=== PATIENT | male | born 1990 | race Caucasian/White ===

== ENCOUNTER 2016-12-21 15:31 | Emergency (ER) | payer SELFPAY ==
[2016-12-21 16:00] VITALS: BMI 28.1
[2016-12-21] MEDS ORDERED: Sodium Chloride 0.9% 1,000 ML IV STA (16:38)
[2016-12-21] MEDS ORDERED: Sodium Chloride 0.9% 1,000 ML ONE ×2 (16:45→19:51)
[2016-12-21 16:50] LABS: BASO # 0.1 K/uL (0.0-0.2); BASO % 0.6 % (0.0-2.0); EOS % 0.1 % (0.0-4.0); HEMATOCRIT 44.6 % (35.0-51.0); LYMPH # 1.2 K/uL (1.0-4.3); LYMPH % 10.5 % (20.0-40.0); MEAN CELL VOLUME 86.5 fL (80.0-94.0); MEAN CORPUSCULAR HEMOGLOBIN 28.4 pg (27.0-31.0); MEAN CORPUSCULAR HGB CONC 32.9 g/dL (33.0-37.0); MEAN PLATELET VOLUME 9.3 fL (7.2-11.7); MONO # 0.4 K/uL (0.0-0.8); RED CELL DISTRIBUTION WIDTH 13.4 % (11.5-14.5); WHITE BLOOD COUNT 11.9 K/uL (4.8-10.8)
[2016-12-21 17:07] LABS: CHLORIDE 97 mmol/L (98-107)
[2016-12-21 17:08] LABS: POTASSIUM 3.9 mmol/L (3.6-5.2); SODIUM 140 mmol/L (132-148)
[2016-12-21 17:10] LABS: ALB/GLOB RATIO 1.5 (1.0-2.1); AST/SGOT 19 U/L (17-59); BILIRUBIN,TOTAL 0.6 mg/dL (0.2-1.3); CARBON DIOXIDE 30 mmol/L (22-30); GFR AFRICAN-AMERICAN > 60; TOTAL PROTEIN 7.7 g/dL (6.3-8.3)
[2016-12-21 17:11] LABS: ALKALINE PHOSPHATASE 71 U/L (38-126); ALT/SGPT 21 U/L (21-72); BLOOD UREA NITROGEN 10 mg/dL (9-20); CALCIUM 9.1 mg/dl (8.6-10.4); GLUCOSE,RANDOM 133 mg/dL (75-110)
--- NOTE | 2016-12-21 17:43 | RAD ---
HISTORY: h/o gastric ulcer, svere abd pain COMPARISON: CT abdomen and pelvis with contrast performed 04/01/16 FINDINGS: BOWEL: Nonobstructive bowel gas pattern. Mild to moderate constipation. No definite free air. BONES: No acute osseous abnormality is detected. OTHER FINDINGS: None. IMPRESSION: Mild to moderate constipation.
--- NOTE | 2016-12-21 18:13 | C.PDOC ---
History Of Present Illness <Mara Chu - Last Filed: 12/21/16 19:05> <Neil Hoff - Last Filed: 12/21/16 20:26> 26 y/o male pmhx peptic ulcer disease presents to the ED with complains of upper abdominal pain and vomiting since 0400 this morning. Pt not currently taking any medications. Denies consuming any new foods or beverages. Denies fever, chills, diarrhea or any other complaints. (Mara Chu) History Per: Patient History/Exam Limitations: no limitations Onset/Duration Of Symptoms: Hrs Current Symptoms Are (Timing): Still Present Severity: Moderate Location Of Pain/Discomfort: Epigastric (g) Radiation Of Pain To:: None Quality Of Discomfort: "Pain" Associated Symptoms: Vomiting. denies: Fever, Chills, Diarrhea, Chest Pain Exacerbating Factors: None Alleviating Factors: None Recent travel outside of the [place]: No <Mara Chu - Last Filed: 12/21/16 19:05> <Neil Hoff - Last Filed: 12/21/16 20:26> Time Seen by Provider: 12/21/16 16:05 Chief Complaint (Nursing): Abdominal Pain Past Medical History Reviewed: Historical Data, Nursing Documentation, Vital Signs - Medical History PMH: Asthma, Diverticulitis, Pancreatitis Family History: States: Unknown Family Hx - Social History Hx Tobacco Use: No Hx Alcohol Use: No Hx Substance Use: No - Immunization History Hx Tetanus Toxoid Vaccination: No Hx Influenza Vaccination: No Hx Pneumococcal Vaccination: No <Mara Chu - Last Filed: 12/21/16 19:05> Review Of Systems Except As Marked, All Systems Reviewed And Found Negative. Constitutional: Negative for: Fever, Chills Cardiovascular: Negative for: Chest Pain Gastrointestinal: Positive for: Vomiting, Abdominal Pain. Negative for: Diarrhea <Mara Chu - Last Filed: 12/21/16 19:05> Physical Exam - Physical Exam Appears: Non-toxic, No Acute Distress Skin: Warm, Dry, No Rash Head: Atraumatic, Normacephalic Oral Mucosa: Moist Neck: Normal, Normal ROM, Supple Chest: Symmetrical Cardiovascular: Rhythm Regular, No Murmur Respiratory: Normal Breath Sounds, No Rales, No Rhonchi, No Wheezing Gastrointestinal/Abdominal: Soft, Tenderness (epigastric tenderness), No Guarding, No Rebound Extremity: Normal ROM Extremity: Bilateral: Atraumatic Neurological/Psych: Oriented x3, Normal Speech <Mara Chu - Last Filed: 12/21/16 19:05> ED Course And Treatment - Laboratory Results Result Diagrams: 12/21/16 16:45 12/21/16 16:45 O2 Sat by Pulse Oximetry: 99 (room air) Pulse Ox Interpretation: Normal - Other Rad XR abdomen X-Ray: Viewed By Me, Read By Radiologist Interpretation: Accession No. : [id number]. Patient Name / ID : KAREN VALDEZ / [id number]. Exam Date : 12/21/2016 16:50:24 ( Approved ). Study Comment : Sex / Age : M / 26Y. Creator : Nathalia Garrett MD. Dictator : Nathalia Garrett MD. Obstetric Anaesthetist : Independent Insurance Adjuster : Nathalia Garrett MD. Approver2 : Report Date : 12/21/2016 17:41:40. My Comment : . HISTORY: h/o gastric ulcer, svere abd pain. COMPARISON: CT abdomen and pelvis with contrast performed 04/01/16. FINDINGS: BOWEL: Nonobstructive bowel gas pattern. Mild to moderate constipation. No definite free air. BONES : No acute osseous abnormality is detected. OTHER FINDINGS: None. IMPRESSION : Mild to moderate constipation. Progress Note: CT abd/pelvis pending <Mara Chu - Last Filed: 12/21/16 19:05> - Laboratory Results Result Diagrams: 12/21/16 16:45 12/21/16 16:45 Pulse Ox Interpretation: Normal Reevaluation Time: 20:24 Reassessment Condition: Improved <Neil Hoff - Last Filed: 12/21/16 20:26> Medical Decision Making <Mara Chu - Last Filed: 12/21/16 19:05> <Neil Hoff - Last Filed: 12/21/16 20:26> Medical Decision Making: Plan: XR erect abd, CT abdomen, UA, labs, IV fluids, zofran, protonix (Mara Chu) Disposition - Disposition Disposition Time: 19:11 <Mara Chu - Last Filed: 12/21/16 19:05> Counseled Patient/Family Regarding: Studies Performed, Diagnosis, Need For Followup, Rx Given <Neil Hoff - Last Filed: 12/21/16 20:26> - Disposition Disposition: HOME/ ROUTINE Condition: FAIR Prescriptions: Ondansetron ODT [Zofran ODT] 1 odt PO BID PRN #10 odt PRN Reason: Nausea/Vomiting Instructions: Abdominal Pain (ED), Acute Nausea and Vomiting (ED) - Clinical Impression Clinical Impression: Abdominal pain, Nausea, Vomiting - PA / COOKING SHOW HOST / Resident Statement MD/DO has reviewed & agrees with the documentation as recorded. - Scribe Statement The provider has reviewed the documentation as recorded by the Scribe <Mara Chu - Last Filed: 12/21/16 19:05> <Neil Hoff - Last Filed: 12/21/16 20:26> - Scribe Statement Raudel Mueller All medical record entries made by the Scribe were at my direction and personally dictated by me. I have reviewed the chart and agree that the record accurately reflects my personal performance of the history, physical exam, medical decision making, and the department course for this patient. I have also personally directed, reviewed, and agree with the discharge instructions and disposition. (Mara Chu)
[2016-12-21] MEDS ORDERED: Iodixanol 320 MG/ML 100 ML BOTTLE IV ONE (18:52)
[2016-12-21 19:11] VITALS: O2SAT 99
[2016-12-21] MEDS ORDERED: Sodium Chloride 0.9% 1,000 ML IV ONE (19:32)
[2016-12-21 20:28] LABS: RBC URINE 3 /hpf (0-3); URINE BACTERIA OCC (<OCC); URINE BILIRUBIN NEGATIVE (NEGATIVE); URINE BLOOD NEGATIVE (NEGATIVE); URINE COLOR Yellow (YELLOW); URINE GLUCOSE (UA) NORMAL (Normal); URINE KETONE NEGATIVE (NEGATIVE); URINE LEUKOCYTE ESTERASE NEG Leu/uL (Negative); URINE PROTEIN 2+ mg/dL (NEGATIVE); URINE UROBILINOGEN NORMAL mg/dL (0.2-1.0); WBC URINE 3 /hpf (0-5)
[2016-12-21 20:44] VITALS: BP 117/71; PULSE 77; RESP 18; TEMP 99.2
--- NOTE | 2016-12-22 09:49 | CT ---
PROCEDURE: CT Abdomen and Pelvis without intravenous contrast HISTORY: Abdominal pain COMPARISON: 03/10/2016 TECHNIQUE: Multiple contiguous axial images were performed through the abdomen and pelvis with intravenous contrast. Subsequently, sagittal and coronal reformatted images were obtained. Radiation dose: Total exam DLP = 531 mGy-cm. This CT exam was performed using one or more of the following dose reduction techniques: Automated exposure control, adjustment of the mA and/or kV according to patient size, and/or use of iterative reconstruction technique. FINDINGS: LOWER THORAX: Unremarkable. LIVER: Unremarkable. No gross lesion or ductal dilatation. GALLBLADDER AND BILE DUCTS: Unremarkable. PANCREAS: Unremarkable. No gross lesion or ductal dilatation. SPLEEN: Unremarkable. ADRENALS: Unremarkable. No mass. KIDNEYS AND URETERS: 1.1 centimeter low-attenuation focus in the midpole of the right kidney, too small to adequately characterize. VASCULATURE: Unremarkable. No aortic aneurysm. BOWEL: Unremarkable. No obstruction. Under distended descending and sigmoid colon. Stomach appears distended with fluid and air. Air along the wall of the stomach at its superior extent may be dependent. Clinical correlation. APPENDIX: No findings to suggest acute appendicitis. PERITONEUM: Unremarkable. No free fluid. No free air. LYMPH NODES: Unremarkable. No enlarged lymph nodes. BLADDER: Unremarkable. REPRODUCTIVE: Unremarkable. BONES: No acute fracture. OTHER FINDINGS: None. IMPRESSION: Negative acute. Additional findings as above. These findings were preliminarily reported at 7:42 p.m. on 12/21/[address] Jack Patten from [employer].
== END 2016-12-21 20:50 | disposition home or self-care (01) ==
LOC: C.ER 15:31
DX: R10.13 Epigastric pain (principal); R11.2 Nausea with vomiting, unspecified
CPT/HCPCS: 74000; 74177; 80053; 81001; 83690; 85025; 96361; 96374; 96375; 99284; C9113; J2405; J2765; J7040; Q9967

== ENCOUNTER 2017-03-17 18:48 | Emergency (ER) | payer SELFPAY ==
[2017-03-17 18:53] VITALS: BMI 27.3
[2017-03-17 18:54] VITALS: BP 114/79; PULSE 103; RESP 18; TEMP 100.3; O2SAT 96
--- NOTE | 2017-03-17 19:38 | C.PDOC ---
History Of Present Illness 26 y/o male presents to ED with complaints of sore throat for 3 days. Patient also complaints of fever and headache since yesterday. Patient denies SOB, cough or any other associated complaints at this time. Time Seen by Provider: 03/17/17 19:01 Chief Complaint (Nursing): ENT Problem History Per: Patient History/Exam Limitations: no limitations Onset/Duration Of Symptoms: Days Current Symptoms Are (Timing): Still Present Location Of Pain: Throat Associated Symptoms: Fever Past Medical History Reviewed: Historical Data, Nursing Documentation, Vital Signs Vital Signs: Last Vital Signs Temp 100.3 F H 03/17/17 18:53 Pulse 103 H 03/17/17 18:53 Resp 18 03/17/17 18:53 BP 114/79 03/17/17 18:53 Pulse Ox 96 03/17/17 19:52 - Medical History PMH: Asthma Denies: Diverticulitis (PT DENIES), Chronic Kidney Disease - [facility] Procedures EXCISION OF STOMACH, ENDO, DIAGN (04/03/16) Family History: States: Unknown Family Hx - Social History Hx Tobacco Use: No Hx Alcohol Use: No Hx Substance Use: Yes - Immunization History Hx Tetanus Toxoid Vaccination: No Hx Influenza Vaccination: No Hx Pneumococcal Vaccination: No Review Of Systems Constitutional: Positive for: Fever. Negative for: Chills Eyes: Negative for: Vision Change ENT: Positive for: Throat Swelling Cardiovascular: Negative for: Chest Pain Gastrointestinal: Negative for: Nausea, Vomiting, Diarrhea Skin: Negative for: Rash Neurological: Positive for: Headache. Negative for: Weakness, Numbness, Dizziness Physical Exam - Physical Exam Appears: Non-toxic, No Acute Distress Skin: Normal Color, Warm, Dry, No Rash Head: Atraumatic, Normacephalic Eye(s): bilateral: Normal Inspection, EOMI Ear(s): Bilateral: Normal Nose: Normal Oral Mucosa: Moist Throat: Erythema, No Exudate, No Drooling, No Mass Neck: Normal ROM Chest: Symmetrical Cardiovascular: Rhythm Regular, No Murmur Respiratory: Normal Breath Sounds, No Rales, No Rhonchi, No Wheezing Extremity: Normal ROM Neurological/Psych: Oriented x3, Normal Speech ED Course And Treatment O2 Sat by Pulse Oximetry: 96 (RA) Pulse Ox Interpretation: Normal Medical Decision Making Medical Decision Making: Patient with throat pain and exam consistent with pharyngitis. Treat with Penicillin PO. Patient advised to take Motrin or Tylenol for fever or pain. Disposition Counseled Patient/Family Regarding: Diagnosis, Need For Followup, Rx Given - Disposition Disposition: HOME/ ROUTINE Disposition Time: 19:37 Condition: STABLE Additional Instructions: Take Tylenol or Motrin alternating every 4-6 hours for Fever 100.4F or higher. Rest and drink plenty of fluids to prevent dryhdration. Try vanilla ice cream to improve eating/drinking, this is cold soothing and tastes good. May also try lozenges or cepacol spary over the counter. Prescriptions: Penicillin VK [Pen-Vee K] 1 tab PO BID #20 tab Instructions: Pharyngitis (ED) Forms: [employer] (Liberian) - POA Present On Arrival: None - Clinical Impression Clinical Impression: Pharyngitis - PA / GAMBLING CASHIER / Resident Statement MD/DO has reviewed & agrees with the documentation as recorded. - Scribe Statement The provider has reviewed the documentation as recorded by the Mathew Davis All medical record entries made by the Mathew were at my direction and personally dictated by me. I have reviewed the chart and agree that the record accurately reflects my personal performance of the history, physical exam, medical decision making, and the department course for this patient. I have also personally directed, reviewed, and agree with the discharge instructions and disposition.
== END 2017-03-17 19:44 | disposition home or self-care (01) ==
LOC: C.ER 18:48
DX: J02.9 Acute pharyngitis, unspecified (principal); Z87.891 Personal history of nicotine dependence

== ENCOUNTER 2017-07-26 15:05 | Emergency (ER) | payer SELFPAY ==
[2017-07-26 15:29] VITALS: BMI 29.7
[2017-07-26 15:31] VITALS: RESP 18; TEMP 97.9
[2017-07-26 17:37] VITALS: BP 110/70; PULSE 72; O2SAT 99
--- NOTE | 2017-07-26 18:43 | C.PDOC ---
History Of Present Illness Patient presents to the emergency room c/o b/l lower jaw pain for 1 week. Patient denies recent trauma, foul taste in mouth, fever or chills. Patient did not take any medication for the pain. Chief Complaint (Nursing): Headache History Per: Patient History/Exam Limitations: no limitations Past Medical History Vital Signs: Last Vital Signs Temp 97.9 F 07/26/17 15:29 Pulse 72 07/26/17 17:36 Resp 18 07/26/17 17:36 BP 110/70 07/26/17 17:36 Pulse Ox 99 07/26/17 20:24 - Medical History PMH: Asthma Denies: Diverticulitis (PT DENIES), Pancreatitis (PT DENIES), Chronic Kidney Disease - [facility] Procedures EXCISION OF STOMACH, ENDO, DIAGN (04/03/16) Family History: States: No Known Family Hx - Social History Hx Tobacco Use: No Hx Alcohol Use: No Hx Substance Use: No - Immunization History Hx Tetanus Toxoid Vaccination: No Hx Influenza Vaccination: No Hx Pneumococcal Vaccination: No Review Of Systems Constitutional: Negative for: Fever Eyes: Negative for: Pain ENT: Negative for: Ear Pain Cardiovascular: Negative for: Chest Pain Respiratory: Negative for: Cough Gastrointestinal: Negative for: Nausea, Vomiting, Abdominal Pain Neurological: Negative for: Weakness, Numbness Physical Exam - Physical Exam Appears: Well, Non-toxic, No Acute Distress Skin: Normal Color Eye(s): bilateral: Normal Inspection Ear(s): Bilateral: Normal Oral Mucosa: Moist Tongue: Normal Appearing Lips: Normal Appearing Teeth: Caries (multiple on lower jaw) Neck: Normal Lymphatic: Deferred Cardiovascular: Rhythm Regular Respiratory: Normal Breath Sounds Gastrointestinal/Abdominal: Normal Exam, Bowel Sounds, Soft, No Tenderness ED Course And Treatment O2 Sat by Pulse Oximetry: 99 Medical Decision Making Medical Decision Making: Patient given referral for dentist for multiple caries. Disposition - Disposition Referrals: [facility] [Outside] [facility] [Outside] Disposition: HOME/ ROUTINE Disposition Time: 17:10 Condition: GOOD Additional Instructions: Thank you for letting us take care of you today. The emergency medical care you received today was directed at your acute symptoms. If you were prescribed any medication, please fill it and take as directed. It may take several days for your symptoms to resolve. Return to the Emergency Department if your symptoms worsen, do not improve, or if you have any other problems. Please contact your doctor or call one of the physicians/clinics you have been referred to that are listed on the Patient Visit Information form that is included in your discharge packet. Bring any paperwork you were given at discharge with you along with any medications you are taking to your follow up visit. Our treatment cannot replace ongoing medical care by a primary care provider (PCP) outside of the emergency department. Thank you for allowing the [facility] team to be part of your care today. Follow up with the clinic this week for outpatient care. Please use the information provided to see a dentist. Prescriptions: Clindamycin [Cleocin] 300 mg PO Q6 #28 cap Instructions: Dental Caries (ED) Forms: [employer] (Trinidadian) - Clinical Impression Clinical Impression: Dental caries
== END 2017-07-26 17:37 | disposition home or self-care (01) ==
LOC: C.ER 15:05
DX: K02.9 Dental caries, unspecified (principal)

== ENCOUNTER 2017-12-20 10:46 | Emergency (ER) | payer MEDICAID, OTHER ==
[2017-12-20 10:46] VITALS: BMI 29.7
[2017-12-20 11:56] VITALS: PULSE 60; RESP 16
[2017-12-20] MEDS ORDERED: Lidocaine 5% Patch TD STA (12:26)
--- NOTE | 2017-12-20 12:26 | C.PDOC ---
History Of Present Illness 27 y/o male with history of Asthma presents to ED with c/o low back pain worsening for 1 month worse on right side. Patient states pain feels like pins and needles, reports taking Aleve today with no improvement. Patient denies injury, fever, chills, dysuria, hematuria, abdominal pain or any other complaints at this time. Time Seen by Provider: 12/20/17 12:14 Chief Complaint (Nursing): Back Pain History Per: Patient History/Exam Limitations: no limitations Onset/Duration Of Symptoms: Days Current Symptoms Are (Timing): Still Present Quality Of Discomfort: "Pain" Past Medical History Reviewed: Historical Data, Nursing Documentation, Vital Signs Vital Signs: Last Vital Signs Temp 97.9 F 12/20/17 11:53 Pulse 60 12/20/17 11:53 Resp 16 12/20/17 11:53 BP 121/81 12/20/17 11:53 Pulse Ox 98 12/20/17 12:56 - Medical History PMH: Asthma Surgical History: No Surg Hx - [facility] Procedures EXCISION OF STOMACH, ENDO, DIAGN (04/03/16) Family History: States: No Known Family Hx - Social History Hx Tobacco Use: No Hx Alcohol Use: No Hx Substance Use: No - Immunization History Hx Tetanus Toxoid Vaccination: No Hx Influenza Vaccination: No Hx Pneumococcal Vaccination: No Review Of Systems Constitutional: Negative for: Fever, Chills Cardiovascular: Negative for: Chest Pain Gastrointestinal: Negative for: Nausea, Vomiting, Abdominal Pain Musculoskeletal: Positive for: Back Pain Neurological: Negative for: Weakness, Numbness Physical Exam - Physical Exam Appears: Non-toxic, No Acute Distress Skin: Warm, Dry, No Rash Head: Atraumatic, Normacephalic Oral Mucosa: Moist Neck: Normal ROM, Supple Cardiovascular: Rhythm Regular Respiratory: Normal Breath Sounds, No Rales, No Rhonchi, No Wheezing Gastrointestinal/Abdominal: Soft, No Tenderness, No Guarding, No Rebound Back: No CVA Tenderness, No Vertebral Tenderness, Other (Paralumbar tenderness. Right buttock region tenderness) Neurological/Psych: Oriented x3, Normal Speech, Normal Cognition, Normal Motor, Normal Sensation ED Course And Treatment O2 Sat by Pulse Oximetry: 98 (RA) Pulse Ox Interpretation: Normal Disposition Counseled Patient/Family Regarding: Diagnosis, Need For Followup, Rx Given - Disposition Referrals: [facility] [Outside] Disposition: HOME/ ROUTINE Disposition Time: 13:40 Condition: STABLE Prescriptions: diaZEpam [Valium] 5 mg PO TID #12 tab Ibuprofen [Motrin] 600 mg PO TID #15 tab Lidocaine 5% [Lidoderm] 1 ea TD DAILY #1 patch Instructions: Sciatica, Sciatica Exercises Forms: [facility] (South African), General Discharge Instructions, Work Excuse - POA Present On Arrival: None - Clinical Impression Clinical Impression: Low back pain, Sciatica - Scribe Statement The provider has reviewed the documentation as recorded by the Mathew Davis All medical record entries made by the Wilibkeila were at my direction and personally dictated by me. I have reviewed the chart and agree that the record accurately reflects my personal performance of the history, physical exam, medical decision making, and the department course for this patient. I have also personally directed, reviewed, and agree with the discharge instructions and disposition.
[2017-12-20] MEDS ORDERED: Lidocaine 5% Patch TD ONE (12:34)
[2017-12-20 14:06] VITALS: BP 124/78; TEMP 98; O2SAT 99
== END 2017-12-20 14:05 | disposition home or self-care (01) ==
LOC: C.ER 10:46
DX: M54.40 Lumbago with sciatica, unspecified side (principal)

== ENCOUNTER 2018-01-25 07:17 | Emergency (ER) | payer MEDICAID, OTHER ==
[2018-01-25 07:17] VITALS: BMI 33.0
[2018-01-25 07:21] VITALS: TEMP 98.6
[2018-01-25] MEDS ORDERED: Sodium Chloride 0.9% 1,000 ML IV ONE (07:51)
--- NOTE | 2018-01-25 07:54 | C.PDOC ---
History Of Present Illness <Leslie Tan - Last Filed: 01/25/18 17:45> <Fidencio Givens - Last Filed: 01/26/18 13:53> 27-year-old male, presents to the emergency department with complaints of left lower abdominal pain for 2 days. He reports pain radiates from left flank and left upper abdomen. Last night patient reports feeling fever and chills with non -bloody/non-bilious vomiting. He admits he was constipated few days ago and took laxative with successive bowel movement 2 days ago. Denies any inguinal, testicular or penile pain or swelling, hematuria, melena, hematochezia. ( Leslie Tan) History Per: Patient History/Exam Limitations: no limitations Current Symptoms Are (Timing): Still Present <Leslie Tan - Last Filed: 01/25/18 17:45> <Fidencio Givens - Last Filed: 01/26/18 13:53> Time Seen by Provider: 01/25/18 07:45 Chief Complaint (Nursing): Abdominal Pain Past Medical History Reviewed: Historical Data, Nursing Documentation, Vital Signs - Medical History PMH: Asthma Family History: States: No Known Family Hx - Social History Hx Tobacco Use: No Hx Alcohol Use: No Hx Substance Use: No - Immunization History Hx Tetanus Toxoid Vaccination: No Hx Influenza Vaccination: No Hx Pneumococcal Vaccination: No <Leslie Tan - Last Filed: 01/25/18 17:45> Vital Signs: Last Vital Signs Temp 98.6 F 01/25/18 07:19 Pulse 78 01/25/18 12:20 Resp 16 01/25/18 12:20 BP 125/75 01/25/18 12:20 Pulse Ox 97 01/25/18 17:50 - [facility] Procedures EXCISION OF STOMACH, ENDO, DIAGN (04/03/16) Review Of Systems Constitutional: Positive for: Fever, Chills Cardiovascular: Negative for: Chest Pain Respiratory: Negative for: Shortness of Breath Gastrointestinal: Positive for: Nausea, Vomiting, Abdominal Pain. Negative for : Melena Genitourinary: Negative for: Dysuria, Frequency, Hematuria, Penile Discharge Musculoskeletal: Positive for: Back Pain (flank, left.) Skin: Negative for: Rash <Leslie Tan - Last Filed: 01/25/18 17:45> Physical Exam - Physical Exam Appears: Non-toxic, No Acute Distress Skin: Normal Color, Warm, Dry, No Rash Head: Atraumatic Eye(s): bilateral: Normal Inspection Neck: Normal ROM Chest: Symmetrical Cardiovascular: Rhythm Regular Gastrointestinal/Abdominal: Soft, Tenderness (LLQ), No Guarding, No Rebound Back: No CVA Tenderness Male Genital: Other (refusing) Extremity: Normal ROM, No Deformity, No Swelling Neurological/Psych: Oriented x3, Normal Speech <Leslie Tan L - Last Filed: 01/25/18 17:45> ED Course And Treatment - Laboratory Results Result Diagrams: 01/25/18 08:28 01/25/18 08:28 Lab Interpretation: Abnormal O2 Sat by Pulse Oximetry: 97 (RA) Pulse Ox Interpretation: Normal - CT Scan/US abd/pelvis Other Rad Studies (CT/US): Read By Radiologist, Radiology Report Reviewed CT/US Interpretation: Accession No. : [id number]. Patient Name / ID : KAREN VALDEZ / [id number]. Exam Date : 01/25/2018 10:53:29 ( Approved ). Study Comment : Sex / Age : M / 27Y. Creator : Palma Kyle. Dictator : Kirk Louis MD. Recruitment And Outreach Assistant : Clinical Documentation Spec : Kirk Louis MD. Approver2 : Report Date : 01/25/2018 10:58:22. My Comment : . PROCEDURE: CT Abdomen and Pelvis with contrast. HISTORY: left flank and LLQ abd pain. COMPARISON: None. TECHNIQUE: Contrast dose: 100 cc of Omnipaque. Radiation dose: Total exam DLP = 8 mGy-cm. This CT exam was performed using one or more of the following dose reduction techniques: Automated exposure control, adjustment of the mA and/or kV according to patient size, and/or use of iterative reconstruction technique. FINDINGS: LOWER THORAX: Unremarkable. LIVER: Unremarkable. No gross lesion or ductal dilatation. GALLBLADDER AND BILE DUCTS: Unremarkable. PANCREAS: Unremarkable. No gross lesion or ductal dilatation. SPLEEN: Unremarkable. ADRENALS: Unremarkable. No mass. KIDNEYS AND URETERS: Tiny bilateral renal hypodensities which are too small to definitively characterize but probably represent cysts. No hydronephrosis. No solid mass. VASCULATURE: Unremarkable. No aortic aneurysm. BOWEL: Unremarkable. No obstruction. No gross mural thickening. APPENDIX: Normal appendix. PERITONEUM: Unremarkable. No free fluid. No free air. LYMPH NODES: Unremarkable. No enlarged lymph nodes. BLADDER: Unremarkable. REPRODUCTIVE : Unremarkable. BONES: No acute fracture. OTHER FINDINGS: None. IMPRESSION : No acute pathology. <Leslie Tan - Last Filed: 01/25/18 17:45> - Laboratory Results Result Diagrams: 01/25/18 08:28 01/25/18 08:28 <Fidencio Givens - Last Filed: 01/26/18 13:53> Medical Decision Making <Leslie Tan - Last Filed: 01/25/18 17:45> <Fidencio Givens Last Filed: 01/26/18 13:53> Medical Decision Making: Impression: LLQ abdominal pain Plan: * Labs * Urine analysis * IV NS, Reglan, Toradol * CT A/P Progress: Labs reviewed CT shows no acute pathology. On re-evaluation patient was resting comfortably on stretcher. He reports abdominal pain has improved and is feeling much better. Abdomen was soft non- distended and no longer tender. He has no fever, vital sign stable. I explained lab and CT findings. Patient feels comfortable going home and will be discharged. Patient given follow up instructions. Instructed to return to ER if symptoms worsen or new symptoms arise. (Leslie Tan) Disposition Counseled Patient/Family Regarding: Diagnosis, Need For Followup - Disposition Disposition Time: 12:08 - POA Present On Arrival: None <Leslie Tan - Last Filed: 01/25/18 17:45> <Fidencio Givens Last Filed: 01/26/18 13:53> - Disposition Disposition: HOME/ ROUTINE Condition: IMPROVED Additional Instructions: Follow up with your primary medical doctor or clinic in 2-5 days for further evaluation. Return to the emergency department at any time if symptoms persist or worsen. Instructions: Acute Abdomen (Belly Pain), Adult (DC) Forms: [employer] (Kinyarwanda) - Clinical Impression Clinical Impression: Abdominal pain, Renal colic on left side - Scribe Statement The provider has reviewed the documentation as recorded by the Scribe (Lorena Denis) <Leslie Tan - Last Filed: 01/25/18 17:45> - PA / FALSEWORK BUILDER / Resident Statement MD/DO has reviewed & agrees with the documentation as recorded. <Fidencio Givens - Last Filed: 01/26/18 13:53> - Scribe Statement All medical record entries made by the Scribe were at my direction and personally dictated by me. I have reviewed the chart and agree that the record accurately reflects my personal performance of the history, physical exam, medical decision making, and the department course for this patient. I have also personally directed, reviewed, and agree with the discharge instructions and disposition. (Leslie Tan)
[2018-01-25] MEDS ORDERED: Sodium Chloride 0.9% 1,000 ML ONE (08:12)
[2018-01-25 08:46] LABS: BASO # 0.1 K/uL (0.0-0.2); BASO % 0.6 % (0.0-2.0); EOS # 0.1 K/uL (0.0-0.7); EOS % 0.8 % (0.0-4.0); HEMOGLOBIN 15.1 g/dL (12.0-18.0); LYMPH # 2.8 K/uL (1.0-4.3); LYMPH % 17.5 % (20.0-40.0); MEAN CELL VOLUME 85.4 fL (80.0-94.0); MEAN CORPUSCULAR HEMOGLOBIN 29.1 pg (27.0-31.0); MEAN CORPUSCULAR HGB CONC 34.1 g/dL (33.0-37.0); MEAN PLATELET VOLUME 9.7 fL (7.2-11.7); MONO # 1.2 K/uL (0.0-0.8); MONO % 7.3 % (0.0-10.0); NEUT # 11.6 K/uL (1.8-7.0); NEUT % 73.8 % (50.0-75.0); RBC 5.19 Mil/uL (4.40-5.90); RED CELL DISTRIBUTION WIDTH 13.6 % (11.5-14.5); WHITE BLOOD COUNT 15.8 K/uL (4.8-10.8)
[2018-01-25 08:48] LABS: ALB/GLOB RATIO 1.5 (1.0-2.1); ALBUMIN 4.7 g/dL (3.5-5.0); ALT/SGPT 25 U/L (21-72); AST/SGOT 24 U/L (17-59); BLOOD UREA NITROGEN 14 mg/dL (9-20); CALCIUM 9.3 mg/dl (8.6-10.4); GFR AFRICAN-AMERICAN > 60; GFR NON-AFRICAN AMERICAN > 60
[2018-01-25 09:47] LABS: SQUAMOUS EPITHIAL 1 /hpf (0-5); URINE BACTERIA RARE (<OCC); URINE BILIRUBIN NEGATIVE (NEGATIVE); URINE BLOOD 3+ (NEGATIVE); URINE CLARITY Hazy (Clear); URINE COLOR Yellow (YELLOW); URINE GLUCOSE (UA) NORMAL (Normal); URINE LEUKOCYTE ESTERASE NEG Leu/uL (Negative); URINE PROTEIN NEGATIVE (NEGATIVE); URINE UROBILINOGEN NORMAL mg/dL (0.2-1.0)
[2018-01-25] MEDS ORDERED: Iodixanol 320 MG/ML 100 ML BOTTLE IV ONE (10:48)
--- NOTE | 2018-01-25 11:23 | CT ---
PROCEDURE: CT Abdomen and Pelvis with contrast HISTORY: left flank and LLQ abd pain COMPARISON: None. TECHNIQUE: Contrast dose: 100 cc of Omnipaque Radiation dose: Total exam DLP = 8 mGy-cm. This CT exam was performed using one or more of the following dose reduction techniques: Automated exposure control, adjustment of the mA and/or kV according to patient size, and/or use of iterative reconstruction technique. FINDINGS: LOWER THORAX: Unremarkable. LIVER: Unremarkable. No gross lesion or ductal dilatation. GALLBLADDER AND BILE DUCTS: Unremarkable. PANCREAS: Unremarkable. No gross lesion or ductal dilatation. SPLEEN: Unremarkable. ADRENALS: Unremarkable. No mass. KIDNEYS AND URETERS: Tiny bilateral renal hypodensities which are too small to definitively characterize but probably represent cysts. No hydronephrosis. No solid mass. VASCULATURE: Unremarkable. No aortic aneurysm. BOWEL: Unremarkable. No obstruction. No gross mural thickening. APPENDIX: Normal appendix. PERITONEUM: Unremarkable. No free fluid. No free air. LYMPH NODES: Unremarkable. No enlarged lymph nodes. BLADDER: Unremarkable. REPRODUCTIVE: Unremarkable. BONES: No acute fracture. OTHER FINDINGS: None. IMPRESSION: No acute pathology.
[2018-01-25 12:21] VITALS: BP 125/75; PULSE 78; RESP 16
[2018-01-25 17:50] VITALS: O2SAT 97
== END 2018-01-25 12:20 | disposition home or self-care (01) ==
LOC: C.ER 07:17
DX: N23 Unspecified renal colic (principal)
CPT/HCPCS: 74177; 80053; 81001; 85025; 96361; 96374; 96375; 99284; J1885; J2765; J7030; Q9967